=== PATIENT | female | born 1975 | race Caucasian/White ===

== ENCOUNTER → 2024-07-21 | Day surgery (SDC) | payer OTHER ==
[~2024-07-21] MED LIST: GLUCAGON 1 MG VIAL IV ONE; GLUCAGON 1 MG VIAL ONE; IOVERSOL 320 MG/ML - 50 ML VIAL IV ONE; ONDANSETRON HCL 2 MG/ML VIAL IV ONE; ONDANSETRON HCL 2 MG/ML VIAL ONE
== END | disposition home or self-care (01) ==
LOC: SURG 07-20 18:18 → CIR.AMB 09:30 → SURG 10:46 → EDSTATUS 11:00 → SURG 11:00
PROVIDERS: ATTEND Internal Medicine
DX: K83.2 Perforation of bile duct (principal); K83.8 Other specified diseases of biliary tract; Z90.49 Acquired absence of other specified parts of digestive tract

== ENCOUNTER 2024-10-12 06:30 | Day surgery (SDC) | payer OTHER ==
[~2024-10-12 06:30] MED LIST changes: +COZAAR50 MG PO; -GLUCAGON 1 MG VIAL IV ONE; -GLUCAGON 1 MG VIAL ONE; -IOVERSOL 320 MG/ML - 50 ML VIAL IV ONE; -ONDANSETRON HCL 2 MG/ML VIAL IV ONE; -ONDANSETRON HCL 2 MG/ML VIAL ONE
== END 2024-10-12 16:15 | disposition home or self-care (01) ==
LOC: CIR.AMB 06:30 → AMB-ENDOS 10-16 13:30
PROVIDERS: ATTEND Internal Medicine
DX: T85.590A Other mechanical complication of bile duct prosthesis, initial encounter (principal); K83.2 Perforation of bile duct; I10 Essential (primary) hypertension